=== PATIENT | male | born 1965 | race Caucasian/White ===

== ENCOUNTER → 2016-08-28 | Outpatient (CLI) | payer OTHER | LOC: M WUC 08:00 | PROVIDERS: ATTEND Nurse Practitioner Family | DX: E78.4 Other hyperlipidemia (principal); I10 Essential (primary) hypertension ==

== ENCOUNTER → 2016-09-28 | Outpatient (CLI) | payer OTHER ==
[~2016-09-28] MED LIST: GASTROGRAFIN SOLUTION 30ML (Q9963) As Ordered ONE; ISOVUE-370 76% 100ML VIAL (Q9967) As Ordered ONE
--- NOTE | 2016-09-28 15:05 | REP ---
CT study abdomen and pelvis without and with IV contrast: With oral contrast. History: Restaging testicular carcinoma. Comparison: CT study February 04, 2016. CT contrast dose: 100 ml of Isovue 370 is administered intravenously by auto injector. CT findings: Preliminary charge entry specialist view demonstrates a normal bowel gas pattern. There is fairly advanced diffuse fatty infiltration of the liver with areas of fat sparing near the gallbladder and along the right lobe anteriorly. This is more pronounced than on the prior CT study. No adrenal lesion is seen on either side. No focal mass lesion is seen. Noncontrast CT study shows intrarenal calculi bilaterally without evidence of hydronephrosis on either side. There are multiple intrarenal calculi bilaterally. The largest of these is on the right kidney. In the upper pole there is a 0.6 cm calculus. On the left, there is a 0.4 cm calculus at mid pole level. No hydronephrosis is seen. No adrenal lesion is seen. Pancreas is unremarkable. No gallbladder abnormality is seen. There is a stable 2.0 cm cyst in the upper pole of the left kidney. There are multiple normal-sized periaortic and celiac axis lymph nodes in the upper abdomen unchanged from the comparison CT study of February 04, 2016. These are improved when compared with the prior study of September 29, 2015. The largest of these lymph nodes are quite a bit smaller. Some of these have decreased from 2.2 to 1.0 cm. Another of the previously prominent lymph nodes has decreased from a 1.7 centimeter transverse dimension to 0.9 cm. No new retroperitoneal adenopathy is seen. There are scattered fat replaced lymph nodes in the inguinal and distal iliac soft tissues bilaterally, which are essentially unchanged from the most recent comparison study of February 04, 2016. No new pelvic or inguinal adenopathy is seen. Postoperative changes are seen along the right spermatic cord post orchiectomy. No abdominal wall defect is seen. Bone window settings show no bony destructive lesion. Impression: 1. Moderate degree of diffuse fatty infiltration of the liver, more prominent than on prior studies. 2. Bilateral intrarenal nephrolithiasis. 3. Improvement noted in the retroperitoneal and upper abdominal lymphadenopathy since the October 17, 2015 prior study. No new or progressive adenopathy seen. Stable pelvic lymph nodes. 4. Stable small left renal cyst. Signed by Kiko Steiner MD 09/28/2016 03:28 P
--- NOTE | 2016-09-28 15:13 | REP ---
CT study of the chest with IV contrast: History: Restaging testicular cancer. Comparison chest CT study February 04, 2016. CT contrast dose: 100 ml of Isovue [address] findings: There is no evidence of significant pulmonary nodule or lung mass lesion. No infiltrate or atelectasis is seen. No pleural effusion is noted. No hilar or mediastinal mass or adenopathy has developed. There is some left coronary artery vascular calcification. There is mild gynecomastia affecting the right breast. This is more prominent than on the prior CT study and should be correlated clinically. There is a 2.3 cm area of subareolar soft tissue in the right breast in this region. There is moderate diffuse fatty infiltration of the liver as reported on the abdominal CT. Bilateral intrarenal calculi and left upper pole renal stone seen. Upper abdominal lymph nodes are again noted unchanged from most recent prior CT. No axillary or other extrathoracic mass or adenopathy is seen. Bone window settings show no bony destructive lesion. Impression: Soft tissue density in the retroareolar region of the right breast increased in size from the most recent prior CT study but most compatible with gynecomastia. This should be correlated clinically. Left coronary artery vascular calcification as before. Otherwise no active cardiopulmonary disease. Signed by Kiko Steiner MD 09/28/2016 03:28 P
== END ==
LOC: M RAD 12:25
PROVIDERS: ATTEND Internal Medicine Medical Oncology
DX: C62.10 Malignant neoplasm of unspecified descended testis (principal)

== ENCOUNTER → 2016-11-22 | Outpatient (CLI) | payer OTHER | LOC: M SMT 11:00 | PROVIDERS: ATTEND Urology | DX: E29.1 Testicular hypofunction (principal) ==

== ENCOUNTER → 2016-12-22 | Outpatient (CLI) | payer OTHER | LOC: M SMT 09:26 | PROVIDERS: ATTEND Urology | DX: E29.1 Testicular hypofunction (principal) ==

== ENCOUNTER → 2017-02-16 | Outpatient (CLI) | payer OTHER ==
[2017-02-16 14:16] LABS: ESTRADIOL 28.6 PG/ML (<39.8)
== END ==
LOC: M SMT 09:54
PROVIDERS: ATTEND Urology
DX: C62.11 Malignant neoplasm of descended right testis (principal); E29.1 Testicular hypofunction

== ENCOUNTER → 2017-03-21 | Outpatient (REF) | payer OTHER | LOC: M LAB REF 09:21 | PROVIDERS: ATTEND Surgery | DX: L97.519 Non-pressure chronic ulcer of other part of right foot with unspecified severity (principal); I70.435 Atherosclerosis of autologous vein bypass graft(s) of the right leg with ulceration of other part of foot ==

== ENCOUNTER → 2017-03-28 | Outpatient (CLI) | payer OTHER ==
[2017-03-28 12:07] LABS: BASO % 0.5 % (0.0-1.0); EOS # 0.1 K/mm3 (0.0-0.50); EOS % 2.1 % (0.0-3.0); LARGE UNSTAINED CELL # 0.3 K/mm3 (0.0-0.4); LARGE UNSTAINED CELL % 4.1 % (0.0-4.0); LYMPH # 2.5 K/mm3 (1.5-4.5); LYMPH % 32.8 % (24.0-44.0); MEAN CORPUSCULAR HEMOGLOBIN 24.6 pg (27.0-33.0); MEAN CORPUSCULAR HGB CONC 31.7 g/dl (32.0-36.5); MEAN CORPUSCULAR VOLUME 77.7 fl (80.0-96.0); MONO # 0.5 K/mm3 (0.0-0.8); MONO % 7.9 % (0.0-5.0); NEUTROPHILS # 3.5 K/mm3 (1.8-7.7); NEUTROPHILS % 52.8 % (36.0-66.0); PLATELET COUNT, AUTOMATED 250 k/mm3 (150-450); RED CELL DISTRIBUTION WIDTH 19.2 % (11.5-14.5); WHITE BLOOD COUNT 6.7 K/mm3 (4.0-10.0)
[2017-03-28 12:23] LABS: ALBUMIN 3.4 GM/DL (3.2-5.2); ALBUMIN/GLOBULIN RATIO 1.06 (1.00-1.93); ALKALINE PHOSPHATASE 55 U/L (45-117); ALT/SGPT 41 U/L (12-78); ANION GAP 8 MEQ/L (8-16); AST/SGOT 42 U/L (15-37); BILIRUBIN,TOTAL 0.3 MG/DL (0.2-1.0); BLOOD UREA NITROGEN 11 MG/DL (7-18); CALCIUM LEVEL 8.7 MG/DL (8.5-10.1); CARBON DIOXIDE LEVEL 26 MEQ/L (21-32); CHLORIDE LEVEL 108 MEQ/L (98-107); CREATININE FOR GFR 0.93 MG/DL (0.70-1.30); GLOMERULAR FILTRATION RATE > 60.0 (>56); GLUCOSE, FASTING 84 MG/DL (70-105); POTASSIUM SERUM 4.7 MEQ/L (3.5-5.1); SODIUM LEVEL 142 MEQ/L (136-145); TOTAL PROTEIN 6.6 GM/DL (6.4-8.2)
--- NOTE | 2017-03-28 23:19 | REP ---
Clinical: Testicular carcinoma . Comparison: 09/23/2015 . Technique: PA and lateral. Findings: The mediastinum and cardiac silhouette are normal. The lung king are clear and without acute consolidation, effusion, or pneumothorax. The skeletal structures are intact and normal. Impression: 1. No acute cardiopulmonary process. Signed by Hussain Brink MD 03/28/2017 11:11 P
--- NOTE | 2017-03-29 07:32 | REP ---
Clinical: Restaging testicular carcinoma. Technique: Axial contrast enhanced images from the lung bases to the pubic symphysis using oral and 100 ml Isovue 370 intravenous contrast material with precontrast and delayed images of the abdomen as well as coronal and sagittal re-formations. Comparison: 09/28/2016. Findings: Lung bases are clear/stable. Visualized portions of the heart and pericardium are normal. Mild fatty infiltration to the liver is appreciated without focal hepatic lesion identified. Spleen, pancreas, gallbladder, bilateral adrenal glands and right kidney are normal. Left kidney demonstrates stable 1.5 cm cyst and few nonobstructing intrarenal calculi measuring up to 3 mm without perinephric stranding or hydroureteronephrosis. The enteric system including stomach, small and large bowel is without obstruction or acute inflammatory process. Normal terminal ileum and appendix identified in the right lower quadrant. Sigmoid diverticulosis noted without acute diverticulitis. Pelvis demonstrates collapsed bladder and age appropriate prostate/seminal vesicles. Scattered intraperitoneal and retroperitoneal lymph nodes along with pelvic lymph nodes appear relatively unchanged - the largest lymph node in the right paraaortic retroperitoneal distribution measures 13 mm maximal diameter. Few prominent inguinal lymph nodes (right greater than left) appear slightly more pronounced and minimally enlarged when compared to prior examination - the largest right inguinal lymph node (image [id number]) currently measures 22 x 16 mm and previously measured 19 x 11 mm. No pelvic fluid or ascites. No free air. Musculoskeletal structures demonstrate stable age-related degenerative changes. Impression: 1. While intra-abdominal and retroperitoneal lymph nodes remain relatively unchanged, lymph nodes in the right groin appear slightly more prominent and pronounced than prior examination and warrants reevaluation. 2. Mild fatty infiltration to the liver without focal hepatic lesion identified. 3. Stable benign findings including 1.5 cm left renal cyst and few nonobstructing left renal calculi measuring up to 3 mm. 4. Sigmoid diverticula without acute diverticulitis. 5. No ascites. Signed by Hussain Brink MD 03/29/2017 07:23 A
== END ==
LOC: M RAD 09:09 → M LAB 09:09
PROVIDERS: ATTEND Internal Medicine Medical Oncology
DX: C62.90 Malignant neoplasm of unspecified testis, unspecified whether descended or undescended (principal); K76.0 Fatty (change of) liver, not elsewhere classified; N28.1 Cyst of kidney, acquired; K57.30 Diverticulosis of large intestine without perforation or abscess without bleeding
CPT/HCPCS: 36415; 71020; 74178; 80053; 82105; 83615; 84702; 85025; Q9963; Q9967

== ENCOUNTER → 2017-08-10 | Outpatient (CLI) | payer OTHER ==
[2017-08-10 14:29] LABS: BASO % 0.6 % (0.0-1.0); EOS # 0.1 10^3/uL (0.0-0.50); EOS % 1.9 % (0.0-3.0); HEMATOCRIT 53.2 % (42.0-52.0); HEMOGLOBIN 17.1 g/dl (14.0-18.0); IMMATURE GRANULOCYTE % 0.3 % (0-0); LYMPH # 2.7 10^3/uL (1.5-4.5); LYMPH % 39.8 % (24.0-44.0); MEAN CORPUSCULAR HEMOGLOBIN 26.2 pg (27.0-33.0); MEAN CORPUSCULAR HGB CONC 32.1 g/dl (32.0-36.5); MEAN CORPUSCULAR VOLUME 81.6 fl (80.0-96.0); MONO # 0.8 10^3/uL (0.0-0.8); MONO % 11.1 % (0.0-5.0); NEUTROPHILS # 3.1 10^3/uL (1.8-7.7); NEUTROPHILS % 46.3 % (36.0-66.0); PLATELET COUNT, AUTOMATED 280 10^3/uL (150-450); RED BLOOD COUNT 6.52 10^6/uL (4.30-6.10); RED CELL DISTRIBUTION WIDTH 18.2 % (11.5-14.5); WHITE BLOOD COUNT 6.7 10^3/uL (4.0-10.0)
[2017-08-10 15:13] LABS: ALBUMIN 4.1 GM/DL (3.2-5.2); ALBUMIN/GLOBULIN RATIO 1.17 (1.00-1.93); ALKALINE PHOSPHATASE 88 U/L (45-117); ALT/SGPT 55 U/L (12-78); ANION GAP 9 MEQ/L (8-16); AST/SGOT 47 U/L (7-37); BILIRUBIN,TOTAL 0.4 MG/DL (0.2-1.0); BLOOD UREA NITROGEN 12 MG/DL (7-18); CALCIUM LEVEL 9.1 MG/DL (8.5-10.1); CARBON DIOXIDE LEVEL 24 MEQ/L (21-32); CHLORIDE LEVEL 107 MEQ/L (98-107); CREATININE FOR GFR 0.97 MG/DL (0.70-1.30); GLOMERULAR FILTRATION RATE > 60.0 (>56); GLUCOSE, FASTING 106 MG/DL (70-105); LDH LACTATE DEHYDROGENASE 208 U/L (87-241); POTASSIUM SERUM 4.4 MEQ/L (3.5-5.1); SODIUM LEVEL 140 MEQ/L (136-145); TOTAL PROTEIN 7.6 GM/DL (6.4-8.2)
[2017-08-10 16:55] LABS: ALPHA FETOPROTEIN TUMOR QUANT 2.2 NG/ML (<8.1)
[2017-08-12 08:07] LABS: HCG SERUM TUMOR MARKER QUANT < 1 mIU/mL (0-3)
== END ==
LOC: M LAB 13:34
DX: C62.90 Malignant neoplasm of unspecified testis, unspecified whether descended or undescended (principal)
CPT/HCPCS: 71046

== ENCOUNTER → 2017-08-10 | Outpatient (CLI) | payer OTHER ==
[2017-08-10 15:02] LABS: LDH LACTATE DEHYDROGENASE 203 U/L (87-241); PSA SCREENING 0.42 NG/ML (< 4.0)
[2017-08-10 16:55] LABS: ALPHA FETOPROTEIN TUMOR QUANT 2.3 NG/ML (<8.1)
[2017-08-10 16:56] LABS: TESTOSTERONE 83 NG/DL (241-827)
[2017-08-13 06:11] LABS: HCG SERUM TUMOR MARKER QUANT < 1 mIU/mL
[2017-08-14 14:11] LABS: HEMOGLOBIN A 98.1 % (96.4-98.8); HEMOGLOBIN A2 1.9 % (1.8-3.2); HGB SOLUBILITY Negative (Negative)
== END ==
LOC: M LAB 13:39
DX: C62.11 Malignant neoplasm of descended right testis (principal)
CPT/HCPCS: 83021

== ENCOUNTER → 2017-10-25 | Outpatient (CLI) | payer OTHER | LOC: M RAD 12:40 | DX: I87.2 Venous insufficiency (chronic) (peripheral) (principal) | CPT/HCPCS: 93970 ==

== ENCOUNTER → 2017-11-12 | Outpatient (CLI) | payer OTHER ==
[2017-11-12 18:34] LABS: FREE T3 3.2 PG/ML (2.2-4.0); FREE T4 1.03 NG/DL (0.76-1.46)
[2017-11-12 18:34] LABS: THYROID STIMULATING HORMONE 0.184 uIU/ML (0.358-3.740)
== END ==
LOC: M SMT 13:12
DX: E03.9 Hypothyroidism, unspecified (principal)
CPT/HCPCS: 84443

== ENCOUNTER → 2017-11-15 | Outpatient (CLI) | payer OTHER | LOC: M RAD 06:04 | DX: I73.9 Peripheral vascular disease, unspecified (principal) | CPT/HCPCS: 93923 ==

== ENCOUNTER 2018-01-18 00:51 | Emergency (ER) | payer OTHER, MEDICARE ==
[2018-01-18] MEDS: NS 1,000 ML IV ×2 (00:56→02:00)
[2018-01-18 01:12] LABS: BASO % 0.3 % (0.0-1.0); EOS % 0.1 % (0.0-3.0); HEMATOCRIT 33.1 % (42.0-52.0); HEMOGLOBIN 11.4 g/dl (13.5-17.5); IMMATURE GRANULOCYTE % 0.4 % (0-3.0); LYMPH # 2.4 10^3/uL (1.5-4.5); LYMPH % 23.9 % (24.0-44.0); MEAN CORPUSCULAR HEMOGLOBIN 29.6 pg (27.0-33.0); MEAN CORPUSCULAR HGB CONC 34.4 g/dl (32.0-36.5); MONO # 0.7 10^3/uL (0.0-0.8); MONO % 7.3 % (0.0-5.0); NEUTROPHILS # 6.8 10^3/uL (1.8-7.7); PLATELET COUNT, AUTOMATED 274 10^3/uL (150-450); RED BLOOD COUNT 3.85 10^6/uL (4.30-6.10)
[2018-01-18] MEDS: PANTOPRAZOLE 40MG INJ (PROTONIX) (C9113) IV (01:15)
[2018-01-18 01:18] LABS: ALBUMIN 3.3 GM/DL (3.2-5.2); ALBUMIN/GLOBULIN RATIO 1.27 (1.00-1.93); ALKALINE PHOSPHATASE 51 U/L (45-117); ALT/SGPT 30 U/L (12-78); ANION GAP 12 MEQ/L (8-16); AST/SGOT 22 U/L (7-37); BILIRUBIN,DIRECT 0.2 MG/DL (0.0-0.2); BILIRUBIN,TOTAL 0.4 MG/DL (0.2-1.0); BLOOD UREA NITROGEN 34 MG/DL (7-18); CALCIUM LEVEL 8.4 MG/DL (8.5-10.1); CARBON DIOXIDE LEVEL 25 MEQ/L (21-32); CHLORIDE LEVEL 107 MEQ/L (98-107); CK-MB VALUE MASS 3.2 NG/ML (<3.6); CPK CREATINE PHOSPHOKINASE 161 U/L (39-308); CREATININE FOR GFR 0.97 MG/DL (0.70-1.30); GLOMERULAR FILTRATION RATE > 60.0 (>56); GLUCOSE, FASTING 129 MG/DL (70-100); LIPASE 121 U/L (73-393); MB/CK RELATIVE INDEX 1.98 (< OR =4); SODIUM LEVEL 144 MEQ/L (136-145); TOTAL PROTEIN 5.9 GM/DL (6.4-8.2); TROPONIN I < 0.02 NG/ML (< 0.10)
[2018-01-18 01:25] LABS: INR 4.52; PARTIAL THROMBOPLASTIN TIME 43.3 SECONDS (26.8-37.9); PROTHROMBIN TIME 45.3 SECONDS (12.4-14.5)
[2018-01-18] MEDS: PHYTONADIONE 5 MG TAB PO (02:53)
[2018-01-18 03:18] LABS: TYPE AND SCREEN 1 1
[2018-01-18 03:48] LABS: LACTIC ACID SEPSIS PROTOCOL 2.5 MMOL/L (0.4-2.0)
== END 2018-01-18 04:28 | disposition short-term general hospital (02) ==
LOC: M ED 00:51
DX: K92.1 Melena (principal); I10 Essential (primary) hypertension; E78.70 Disorder of bile acid and cholesterol metabolism, unspecified; E07.9 Disorder of thyroid, unspecified; K21.9 Gastro-esophageal reflux disease without esophagitis; Z79.01 Long term (current) use of anticoagulants; Z79.899 Other long term (current) drug therapy; Z79.890 Hormone replacement therapy; Z86.718 Personal history of other venous thrombosis and embolism; Z87.442 Personal history of urinary calculi; Z98.0 Intestinal bypass and anastomosis status; Z98.890 Other specified postprocedural states
CPT/HCPCS: C9113

== ENCOUNTER → 2018-01-24 | Outpatient (CLI) | payer OTHER | LOC: M RAD 16:29 | DX: M25.561 Pain in right knee (principal) | CPT/HCPCS: 73564 ==

== ENCOUNTER → 2018-02-13 | Outpatient (REF) | payer OTHER ==
[2018-02-15 08:59] LABS: HCG SERUM TUMOR MARKER QUANT < 1 mIU/mL (0-3)
[2018-02-15 10:03] LABS: ALPHA FETOPROTEIN TUMOR QUANT < 1.3 NG/ML (<8.1)
== END ==
LOC: M LAB REF 17:40
DX: C62.90 Malignant neoplasm of unspecified testis, unspecified whether descended or undescended (principal)
CPT/HCPCS: 84702

== ENCOUNTER → 2018-02-18 | Outpatient (CLI) | payer OTHER ==
[~2018-02-18] MED LIST changes: +GASTROGRAFIN SOLUTION 30ML (Q9963) As Ordered; -GASTROGRAFIN SOLUTION 30ML (Q9963) As Ordered ONE; +ISOVUE-370 76% 100ML VIAL (Q9967) As Ordered; -ISOVUE-370 76% 100ML VIAL (Q9967) As Ordered ONE
== END ==
LOC: M RAD 12:38
DX: C62.90 Malignant neoplasm of unspecified testis, unspecified whether descended or undescended (principal); N28.1 Cyst of kidney, acquired; K44.9 Diaphragmatic hernia without obstruction or gangrene
CPT/HCPCS: Q9963

== ENCOUNTER → 2018-03-13 | Outpatient (CLI) | payer OTHER | LOC: M LAB 11:26 | DX: Z85.47 Personal history of malignant neoplasm of testis (principal) | CPT/HCPCS: 71046 ==

== ENCOUNTER → 2018-05-02 | Outpatient (CLI) | payer OTHER ==
[2018-05-02 14:15] LABS: TESTOSTERONE 414 NG/DL (241-827)
== END ==
LOC: M SMT 11:02
DX: E29.1 Testicular hypofunction (principal)
CPT/HCPCS: 84403

== ENCOUNTER → 2018-08-07 | Outpatient (CLI) | payer OTHER ==
[~2018-08-07] MED LIST changes: +ALLO100T; +CLOP75TA2; +FAMO1TAB11; +GABA-843; -GASTROGRAFIN SOLUTION 30ML (Q9963) As Ordered; -ISOVUE-370 76% 100ML VIAL (Q9967) As Ordered; +LEVO200T4; +METO1TAB87; +SIMV80TA13; +WARF-22
--- NOTE | 2018-08-13 10:55 | SLEEPHOME ---
DATE OF PROCEDURE: 08/07/2017 ORDERED BY: JACOBO Coronado [facility] home sleep testing was performed due to concern for the obstructive sleep apnea syndrome in this patient with a prior history of obstructive sleep apnea syndrome. The patient has undergone significant weight loss. For testing, a nocturnal T3 respiratory monitoring device was used. Continuous record made of pulse, oxygen saturation, airflow, chest and abdominal strain and body position. 9 hours and 59 minutes of data were reviewed. There were 7 hours and 26 minutes marked as time in bed. During the interval marked time in bed, there were 39 respiratory events identified of 10 seconds in duration or greater for a respiratory event index of 5.2. The events were primarily obstructive hypopneas. The pulse rate and oxygen saturation data were not recorded as the probe became dislodged early in the study. Testing was performed in both the supine and nonsupine positions. IMPRESSION: Abnormal home sleep testing with repetitive respiratory events and a respiratory event index of 5.2 is consistent with the obstructive sleep apnea syndrome. RECOMMENDATION: As pulse rate and oximetric data were not obtained with the study, repeat testing may be helpful Home testing may underestimate the severity of obstructive sleep apnea syndrome and if symptoms are persistent repeat evaluation for formal in-laboratory nocturnal polysomnography may be more helpful to categorize the significance of mild disease.
== END ==
LOC: M SLEEP HO 14:52
PROVIDERS: ATTEND Nurse Practitioner Family
DX: G47.33 Obstructive sleep apnea (adult) (pediatric) (principal)

== ENCOUNTER → 2018-08-22 | Outpatient (CLI) | payer OTHER ==
[2018-08-23 10:33] LABS: RUBELLA IgG QUALITATIVE EQUIVOCAL (IMMUNE)
[2018-08-24 08:06] LABS: MUMPS VIRUS IgG ANTIBODY <9.0 AU/mL (Immune >10.9); RUBEOLA IgG ANTIBODY >300.0 AU/mL (Immune >29.9)
== END ==
LOC: M WUC 11:04
PROVIDERS: ATTEND Physician Assistant
DX: Z02.1 Encounter for pre-employment examination (principal)

== ENCOUNTER 2019-07-18 09:28 | Emergency (ER) | payer OTHER ==
[~2019-07-18] VITALS: Ht 167.6 cm; Wt 111.4 kg
[~2019-07-18 09:28] MED LIST changes: -ALLO100T; +ALLO100T PO; +ELIQ5TAB PO; -GABA-843; +GABA-843 PO; +OMEP-172 PO; +SIMV40TA20 PO
[2019-07-18] MEDS ORDERED: TEST200I14 IM (09:41)
[2019-07-18] MEDS ORDERED: DULO1CAP6 PO (09:41)
[2019-07-18] MEDS ORDERED: CYCL5TAB PO (09:53)
[2019-07-18] MEDS ORDERED: NAPR-837 PO (09:53)
[2019-07-18 10:10] VITALS: BP 142/85
== END 2019-07-18 10:10 | disposition home or self-care (01) ==
LOC: M ED 09:28 → EDBD 09:28 → M ED 10:10
DX: S16.1XXA Strain of muscle, fascia and tendon at neck level, initial encounter (principal); V49.49XA Driver injured in collision with other motor vehicles in traffic accident, initial encounter; Y92.410 Unspecified street and highway as the place of occurrence of the external cause; E07.9 Disorder of thyroid, unspecified; E78.5 Hyperlipidemia, unspecified; G62.9 Polyneuropathy, unspecified; Z98.84 Bariatric surgery status; Z79.899 Other long term (current) drug therapy; Z79.890 Hormone replacement therapy; Z79.01 Long term (current) use of anticoagulants

== ENCOUNTER → 2019-08-29 | Outpatient (CLI) | payer BC, OTHER ==
[~2019-08-29] MED LIST changes: +CALC1TAB9 PO; +CYCL5TAB PO; +DULO1CAP6 PO; +GASTROGRAFIN SOLUTION 30ML (Q9963) As Ordered ONE; +MULTCAP PO; +NAPR-837 PO; -OMEP-172 PO; +OMEP1CAP73 PO; +TEST200I14 IM; +VITA100018 PO; +VITA1CAP25 PO
--- NOTE | 2019-08-29 16:22 | REPVR ---
PROCEDURE INFORMATION: Exam: CT Abdomen And Pelvis With Contrast Exam date and time: 08/29/2019 3:30 PM Age: 53 years old Clinical indication: Condition or disease; Cancer; Other: Testis; Additional info: Testis CA TECHNIQUE: Imaging protocol: Computed tomography of the abdomen and pelvis with intravenous contrast. Delayed imaging was performed. Oral contrast was administered. Radiation optimization: All CT scans at this facility use at least one of these dose optimization techniques: automated exposure control; mA and/or kV adjustment per patient size (includes targeted exams where dose is matched to clinical indication); or iterative reconstruction. Contrast material: ISOVUE 370; Contrast volume: 100 ml; Contrast route: IV; COMPARISON: CT ABD PELVIS W/O FOL BY WIT 02/18/2018 2:30 PM FINDINGS: Lungs: Mild subpleural reticulation in the right lower lobe. Liver: Normal. No mass. Gallbladder and bile ducts: Normal. No calcified stones. No ductal dilation. Pancreas: Normal. No ductal dilation. Spleen: Normal. No splenomegaly. Adrenals: Normal. No mass. Kidneys and ureters: 14 mm left renal cortical cyst. No hydronephrosis. Stomach and bowel: Post surgical change of the stomach. Patient appears to be status post gastric bypass. Mild gaseous distention of the ascending and transverse colon. Mild diffuse small bowel distention, without an abrupt transition point. Contrast material extends into the colon. Appendix: No evidence of appendicitis. Intraperitoneal space: Unremarkable. No free air. No significant fluid collection. Vasculature: Mild atherosclerotic changes. Lymph nodes: Mildly prominent retroperitoneal lymph nodes, measuring up to 10 mm in short axis dimension, unchanged. Mildly prominent bilateral external iliac chain lymph nodes, measuring up to 11 mm in short axis dimension. Upper normal sized mesenteric lymph nodes, measuring up to 9 mm in short axis dimension, unchanged. Bladder: Unremarkable as visualized. Reproductive: Unremarkable as visualized. Bones/joints: Degenerative change of the spine. Incidental T8 vertebral body hemangioma. Minimal bilateral hip joint DJD. Soft tissues: Unremarkable. IMPRESSION: 1. Mild small bowel and proximal colonic ileus. 2. Mildly prominent retroperitoneal, mildly prominent bilateral iliac, and upper normal sized mesenteric lymph nodes. These are unchanged since the prior CT. Electronically signed by: Megha Griffiths On 08/29/2019 16:24:02 PM
== END ==
LOC: M RAD 13:33
PROVIDERS: ATTEND Internal Medicine Hematology & Oncology
DX: Z85.47 Personal history of malignant neoplasm of testis (principal)

== ENCOUNTER → 2019-10-07 | Outpatient (REF) | payer BC, OTHER ==
[~2019-10-07] MED LIST changes: -GASTROGRAFIN SOLUTION 30ML (Q9963) As Ordered ONE
== END ==
LOC: M LAB REF 10:21
PROVIDERS: ATTEND Internal Medicine Hematology & Oncology
DX: Z85.47 Personal history of malignant neoplasm of testis (principal)

== ENCOUNTER → 2023-06-29 | Outpatient (CLI) | payer BC ==
[~2023-06-29] MED LIST changes: +GABA-282 PO; -GABA-843 PO
[2023-06-29 10:35] LABS: HEMATOCRIT 52.2 % (42.0-52.0); HEMOGLOBIN 17.7 g/dl (13.5-17.5)
== END ==
LOC: M LAB 09:32
PROVIDERS: ATTEND Urology
DX: E29.1 Testicular hypofunction (principal); Z12.5 Encounter for screening for malignant neoplasm of prostate
CPT/HCPCS: 36415; 84403; 85014; 85018; G0103

== ENCOUNTER → 2023-06-29 | Outpatient (CLI) | payer BC | LOC: M RAD 09:27 | PROVIDERS: ATTEND Physician Assistant | DX: G56.92 Unspecified mononeuropathy of left upper limb (principal); M18.0 Bilateral primary osteoarthritis of first carpometacarpal joints ==

== ENCOUNTER 2023-10-22 06:07 | Day surgery (SDC) | payer BC ==
[~2023-10-22] VITALS: Ht 167.6 cm; Wt 131.1 kg
[~2023-10-22 06:07] MED LIST changes: +CALC250T PO; +CLAR10CA3 PO; +ECOT81TA5 PO; -LEVO200T4; +LEVO200T4 PO; +THERTAB52 PO
[2023-10-22] MEDS ORDERED: LOSA50TA28 PO (06:43)
[2023-10-22] MEDS ORDERED: propofoL 200 MG/20 ML VIAL As Ordered ONE (07:00)
[2023-10-22] MEDS ORDERED: MIDAZOLAM INJ 2MG/2ML VIAL As Ordered ONE (07:00)
[2023-10-22] MEDS ORDERED: fentaNYL 100 MCG/2 ML INJECTION As Ordered ONE (07:00)
[2023-10-22] MEDS ORDERED: KETOROLAC 60MG 2ML VIAL As Ordered ONE (07:01)
[2023-10-22] MEDS ORDERED: LIDOCAINE 2% 100MG/5ML SDV (FOR ANES.) As Ordered ONE (07:01)
[2023-10-22] MEDS ORDERED: ONDANSETRON 4MG 2ML VIAL As Ordered ONE (07:02)
[2023-10-22] MEDS ORDERED: GLYCOPYRROLATE INJ 0.2 MG/ML 2 ML VIAL As Ordered ONE (07:07)
[2023-10-22] MEDS: LR 1,000 ML IV SCH (07:15)
[2023-10-22] MEDS ORDERED: ePHEDrine SULFATE 25 MG/5 ML(5MG/ML) SYRINGE As Ordered ONE (07:55)
[2023-10-22] MEDS ORDERED: VASOPRESSIN INJ 20UNITS/ML 1ML VIAL As Ordered ONE (08:14)
[2023-10-22] MEDS ORDERED: HYDROMORPHONE HCL 0.5 MG/ 0.5 ML SYRINGE IV PRN (08:35)
[2023-10-22] MEDS ORDERED: fentaNYL 100 MCG/2 ML INJECTION IV PRN (08:35)
[2023-10-22] MEDS ORDERED: LR 1,000 ML IV SCH (08:35)
[2023-10-22] MEDS ORDERED: oxyCODONE 5MG TAB PO PRN (08:35)
[2023-10-22] MEDS ORDERED: ONDANSETRON 4MG 2ML VIAL IV PRN (08:35)
== END 2023-10-22 09:40 | disposition home or self-care (01) ==
LOC: M SDC 06:07
PROVIDERS: ATTEND Orthopaedic Surgery Hand Surgery
DX: G56.01 Carpal tunnel syndrome, right upper limb (principal); R07.9 Chest pain, unspecified; Z95.5 Presence of coronary angioplasty implant and graft; Z85.528 Personal history of other malignant neoplasm of kidney; I10 Essential (primary) hypertension; Z79.899 Other long term (current) drug therapy; Z98.84 Bariatric surgery status
CPT/HCPCS: 29848; J0665; J1100; J1885; J2250; J2405; J2598; J3010

== ENCOUNTER → 2024-01-25 | Outpatient (CLI) | payer BC ==
[~2024-01-25] MED LIST changes: +LOSA50TA28 PO
[2024-01-25 11:36] LABS: LDH LACTATE DEHYDROGENASE 217 U/L (120-246)
[2024-01-25 11:38] LABS: TESTOSTERONE 399 NG/DL (241-827)
== END ==
LOC: M LAB 09:15
PROVIDERS: ATTEND Urology
DX: C62.90 Malignant neoplasm of unspecified testis, unspecified whether descended or undescended (principal); E29.1 Testicular hypofunction

== ENCOUNTER → 2024-01-25 | Outpatient (CLI) | payer BC ==
[2024-01-25 11:12] LABS: BASO % 0.6 % (0.0-1.0); EOS # 0.1 10^3/uL (0.0-0.5); EOS % 1.6 % (0.0-3.0); HEMATOCRIT 51.9 % (42.0-52.0); HEMOGLOBIN 17.5 g/dl (13.5-17.5); LYMPH # 1.8 10^3/uL (1.5-5.0); LYMPH % 26.8 % (24.0-44.0); MEAN CORPUSCULAR HEMOGLOBIN 31.6 pg (27.0-33.0); MEAN CORPUSCULAR HGB CONC 33.7 g/dl (32.0-36.5); MEAN CORPUSCULAR VOLUME 93.7 fl (80.0-96.0); MONO # 0.6 10^3/uL (0.0-0.8); MONO % 8.9 % (2.0-8.0); NEUTROPHILS # 4.1 10^3/uL (1.5-8.5); NEUTROPHILS % 61.5 % (36.0-66.0); PLATELET COUNT, AUTOMATED 295 10^3/uL (150-450); RED BLOOD COUNT 5.54 10^6/uL (4.30-6.10); WHITE BLOOD COUNT 6.7 10^3/uL (4.0-10.0)
[2024-01-25 11:29] LABS: HEMOGLOBIN A1c 5.7 % (4.0-6.0)
[2024-01-25 11:36] LABS: PSA SCREENING 1.33 NG/ML (< 4.00)
[2024-01-25 11:39] LABS: IRON (FE) 111 UG/DL (65-175); PERCENT SATURATION 30.1 % (19.7-50.0); TOTAL IRON BINDING CAPACITY 369 UG/DL (250-425)
[2024-01-25 11:40] LABS: ALBUMIN 3.9 G/DL (3.2-5.2); ALKALINE PHOSPHATASE 86 U/L (46-116); ALT/SGPT 61 U/L (7.0-40); AST/SGOT 48 U/L (<34); BILIRUBIN,TOTAL 0.6 MG/DL (0.3-1.2); BLOOD UREA NITROGEN 12 MG/DL (9-23); CALCIUM LEVEL 9.5 MG/DL (8.5-10.1); CARBON DIOXIDE LEVEL 28 MMOL/L (20-31); CHLORIDE LEVEL 105 MMOL/L (98-107); CHOLESTEROL LEVEL 168 MG/DL (<200); CREATININE FOR GFR 0.85 MG/DL (0.70-1.30); FERRITIN 52.9 NG/ML (10.5-307.3); FREE T4 1.09 NG/DL (0.89-1.76); GLOMERULAR FILTRATION RATE > 60.0 (>56); GLUCOSE, FASTING 102 MG/DL (60-100); HDL CHOLESTEROL 45.4 MG/DL (>40); LDL CHOLESTEROL 75.2 MG/DL (<100); NON-HDL-C 122.6 MG/DL; POTASSIUM SERUM 4.8 MMOL/L (3.5-5.1); SODIUM LEVEL 141 MMOL/L (136-145); TOTAL PROTEIN 7.1 G/DL (5.7-8.2); TRIGLYCERIDES LEVEL 237 MG/DL (<150)
[2024-01-25 11:41] LABS: FOLATE > 24.0 NG/ML (>5.4); TOTAL 25(OH) VITAMIN D 32.3 NG/ML (20.0-100.0)
[2024-01-25 11:42] LABS: VITAMIN B12 LEVEL 572 PG/ML (211-911)
== END ==
LOC: M LAB 09:08
PROVIDERS: ATTEND Physician Assistant
DX: E03.9 Hypothyroidism, unspecified (principal); Z98.84 Bariatric surgery status; Z85.47 Personal history of malignant neoplasm of testis
CPT/HCPCS: 80053; 80061; 82306; 82607; 82728; 82746; 83036; 83550; 84439; 84443; 85025; G0103

== ENCOUNTER → 2024-02-27 | Outpatient (CLI) | payer BC ==
[~2024-02-27] MED LIST changes: +ISOVUE-370 76% 100ML VIAL As Ordered ONE
== END ==
LOC: M RAD 12:07
PROVIDERS: ATTEND Urology
DX: C62.90 Malignant neoplasm of unspecified testis, unspecified whether descended or undescended (principal)
CPT/HCPCS: 74178; Q9967

== ENCOUNTER 2025-04-18 04:42 | Emergency (ER) | payer BC, SELFPAY ==
[~2025-04-18] VITALS: Ht 167.6 cm; Wt 125.5 kg
[~2025-04-18 04:42] MED LIST changes: -CYCL5TAB PO; +CYCL5TAB4 PO; +GABA-1172 PO; -GABA-282 PO; -ISOVUE-370 76% 100ML VIAL As Ordered ONE
[2025-04-18 05:38] LABS: BASO # 0.0 10^3/uL (0.0-0.2); BASO % 0.4 % (0.0-1.0); EOS # 0.1 10^3/uL (0.0-0.5); EOS % 1.2 % (0.0-3.0); LYMPH # 1.9 10^3/uL (1.5-5.0); LYMPH % 24.5 % (24.0-44.0); MONO # 0.8 10^3/uL (0.0-0.8); MONO % 10.1 % (2.0-8.0); NEUTROPHILS # 4.9 10^3/uL (1.5-8.5); NEUTROPHILS % 63.4 % (36.0-66.0); PLATELET COUNT, AUTOMATED 263 10^3/uL (150-450)
[2025-04-18] MEDS: NITROGLYCERIN 0.4 MG SUBL TABLET SL PRN ×2 (05:44→06:17)
[2025-04-18 05:51] LABS: CK-MB VALUE MASS 3.2 NG/ML (<3.6)
[2025-04-18 05:53] LABS: CALCIUM LEVEL 8.9 MG/DL (8.5-10.1); CARBON DIOXIDE LEVEL 26.0 MMOL/L (20-31); CHLORIDE LEVEL 101.0 MMOL/L (98-107); CREATININE FOR GFR 0.98 MG/DL (0.70-1.30); GLOMERULAR FILTRATION RATE 89.4 (>56); POTASSIUM SERUM 3.9 MMOL/L (3.5-5.1); SODIUM LEVEL 135.0 MMOL/L (136-145)
[2025-04-18 06:18] LABS: CPK CREATINE PHOSPHOKINASE 168.0 U/L (46-171); MB/CK RELATIVE INDEX 1.9 (< OR =4)
[2025-04-18] MEDS: ONDANSETRON 4MG 2ML VIAL IV ONE (06:34)
[2025-04-18] MEDS ORDERED: HEPARIN SOD 5000 UNITS/ML 1 ML VIAL/SYRINGE IV PRN (06:35)
[2025-04-18] MEDS: HEPARIN SOD 5000 UNITS/ML 1 ML VIAL/SYRINGE IV ONE (06:50)
[2025-04-18 06:58] LABS: CK-MB VALUE MASS 4.4 NG/ML (<3.6)
[2025-04-18 06:59] LABS: CPK CREATINE PHOSPHOKINASE 153.0 U/L (46-171); MB/CK RELATIVE INDEX 2.87 (< OR =4)
[2025-04-18] MEDS: HEPARIN DRIP 25,000 UNITS in IV 1 EA IV SCH (07:37)
[2025-04-18 07:54] VITALS: BP 140/82; TEMP 97.2; O2SAT 95
[2025-04-18 07:55] VITALS: BP 131/74
== END 2025-04-18 07:58 | disposition short-term general hospital (02) ==
LOC: M ED 07:03
DX: I21.4 Non-ST elevation (NSTEMI) myocardial infarction (principal); I25.119 Atherosclerotic heart disease of native coronary artery with unspecified angina pectoris; I10 Essential (primary) hypertension; E78.5 Hyperlipidemia, unspecified; E03.9 Hypothyroidism, unspecified
CPT/HCPCS: 71045; 80048; 82550; 82553; 84484; 85025; 85730; 93005; 93041; 94760; 96374; 96375; 96376; 99285; J2405; J3010